=== PATIENT | male | born 1995 | race Caucasian/White ===

== ENCOUNTER 2022-05-25 23:49 | Emergency (ER) | payer MEDICAID ==
[~2022-05-25] VITALS: Ht 175.3 cm; Wt 84.3 kg
[2022-05-26 00:30] VITALS: BP 157/105
[2022-05-26] MEDS ORDERED: HYDROCODONE/ACETAMINOPHEN 5/325MG TABLET PO ONE (00:30)
[2022-05-26] MEDS ORDERED: IBUP-2029 MT (01:25)
[2022-05-26] MEDS ORDERED: HYDR-4001 MT (01:25)
== END 2022-05-26 01:59 | disposition home or self-care (01) ==
LOC: ER 23:49
DX: S52.125A Nondisplaced fracture of head of left radius, initial encounter for closed fracture (principal); Z13.9 Encounter for screening, unspecified; W18.30XA Fall on same level, unspecified, initial encounter; Y93.89 Activity, other specified; Y92.89 Other specified places as the place of occurrence of the external cause; Y99.8 Other external cause status
CPT/HCPCS: 29105; 73080; 73090; 99284; A4565